=== PATIENT | female | born 2000 | race Caucasian/White ===

== ENCOUNTER 2022-05-22 22:03 | Outpatient (CLI) ==
[~2022-05-22] VITALS: Ht 162.6 cm; Wt 72.0 kg
[2022-05-22 22:27] VITALS: BP 122/79
[2022-05-22] MEDS ORDERED: IRON1TAB2 PO (22:35)
[2022-05-22] MEDS ORDERED: NOXI1TAB PO (22:35)
[2022-05-22] MEDS ORDERED: LR 1,000 ML IV ONE (23:00)
[2022-05-23 01:21] LABS: TRANSITIONAL EPI CELLS, URINE SMALL AMOUNT /hpf
[2022-05-23 01:22] LABS: AMORPHOUS SEDIMENT, URINE SMALL AMOUNT (NEGATIVE); HYALINE CAST, URINE NONE SEEN /lpf (0-1)
[2022-05-23 01:23] LABS: BACTERIA, URINE SMALL AMOUNT; MUCUS, URINE SMALL AMOUNT (NEGATIVE); SQUAMOUS EPITHELIAL CELL URINE MOD AMOUNT /hpf (SMALL AMT)
== END 2022-05-23 01:25 | disposition home or self-care (01) ==
LOC: M LDO 22:03
PROVIDERS: ATTEND Obstetrics & Gynecology
DX: O26.893 Other specified pregnancy related conditions, third trimester (principal); N89.8 Other specified noninflammatory disorders of vagina; Z3A.35 35 weeks gestation of pregnancy; O99.013 Anemia complicating pregnancy, third trimester
CPT/HCPCS: 59025; 76815; 81000; 81015; 87086; G0463

== ENCOUNTER 2022-06-15 13:35 | Outpatient (CLI) ==
[~2022-06-15] VITALS: Ht 162.6 cm; Wt 72.0 kg
[~2022-06-15 13:35] MED LIST: IRON1TAB2 PO; NOXI1TAB PO
[2022-06-15 13:57] VITALS: BP 120/79
[2022-06-15] MEDS ORDERED: MIRA3350 PO (14:05)
[2022-06-15] MEDS ORDERED: HOME MED LIST COMPLETE! XX SCH (14:10)
[2022-06-15 15:09] VITALS: BP 125/81
== END 2022-06-15 15:11 | disposition home or self-care (01) ==
LOC: M LDO 13:35
PROVIDERS: ATTEND Obstetrics & Gynecology
DX: O99.613 Diseases of the digestive system complicating pregnancy, third trimester (principal); K59.00 Constipation, unspecified; Z3A.38 38 weeks gestation of pregnancy; O26.893 Other specified pregnancy related conditions, third trimester; R39.198 Other difficulties with micturition; O99.283 Endocrine, nutritional and metabolic diseases complicating pregnancy, third trimester; E86.0 Dehydration
CPT/HCPCS: 59025; G0463

== ENCOUNTER 2022-06-21 20:28 | Outpatient (CLI) | payer SELFPAY ==
[~2022-06-21] VITALS: Ht 162.6 cm; Wt 72.8 kg
[~2022-06-21 20:28] MED LIST changes: +MIRA3350 PO
[2022-06-21 21:19] VITALS: BP 136/102
[2022-06-21 21:40] VITALS: BP 132/80
== END 2022-06-21 21:52 | disposition home or self-care (01) ==
LOC: M LDO 20:28
PROVIDERS: ATTEND Obstetrics & Gynecology
DX: O47.1 False labor at or after 37 completed weeks of gestation (principal); Z3A.39 39 weeks gestation of pregnancy; O99.013 Anemia complicating pregnancy, third trimester
CPT/HCPCS: 59025; G0463

== ENCOUNTER 2022-06-28 12:31 | Inpatient (IN) | payer OTHER ==
[~2022-06-28] VITALS: Ht 162.6 cm; Wt 73.4 kg
[2022-06-28] VITALS (28 sets, daily range): BP systolic 91–138; BP diastolic 52–89
[2022-06-28] MEDS ORDERED: HOME MED LIST COMPLETE! XX SCH (13:05)
[2022-06-28] MEDS ORDERED: LACTATED RINGER'S 1000 ML IV STA (14:14)
[2022-06-28] MEDS ORDERED: LR 1,000 ML IV SCH ×2 (14:15→16:20)
[2022-06-28] MEDS ORDERED: METHYLERGONOVINE MALEATE 0.2 MG/ML VIAL (J2210) IM PRN (14:15)
[2022-06-28] MEDS ORDERED: LIDOCAINE 1% MDV 20ML VIAL INFIL PRN (14:15)
[2022-06-28] MEDS ORDERED: OXYTOCIN INJ 10 UNITS/ML VIAL (J2590) IM PRN (14:15)
[2022-06-28] MEDS ORDERED: CARBOPROST TROMETHAMINE 250 MCG/ML AMP IM PRN (14:15)
[2022-06-28] MEDS ORDERED: TRANEXAMIC ACID INJection 1,000 MG in NS 100 ML IV PRN (14:15)
[2022-06-28] MEDS ORDERED: OXYTOCIN DRIP 30 UNITS in IV 1 EA IV PRN ×6 (14:15)
[2022-06-28] MEDS ORDERED: OXYTOCIN INJ 10 UNITS/ML VIAL (J2590) IV PRN (14:15)
[2022-06-28 15:14] LABS: HEMATOCRIT 32.5 % (36.0-47.0); MEAN CORPUSCULAR HEMOGLOBIN 29.6 pg (27.0-33.0); MEAN CORPUSCULAR HGB CONC 33.8 g/dl (32.0-36.5); MEAN CORPUSCULAR VOLUME 87.4 fl (80.0-96.0); PLATELET COUNT, AUTOMATED 243 10^3/uL (150-450); RED BLOOD COUNT 3.72 10^6/uL (4.00-5.40); WHITE BLOOD COUNT 10.8 10^3/uL (4.0-10.0)
[2022-06-28] MEDS ORDERED: OXYTOCIN DRIP 30 UNITS in IV 1 EA IV SCH (16:20)
[2022-06-28] MEDS ORDERED: FENTANYL/ROPIVACAINE/NACL BAG 100 ML EPIDURAL SCH (21:10)
[2022-06-28] MEDS ORDERED: LR 500 ML IV PRN (21:10)
[2022-06-28] MEDS ORDERED: ePHEDrine SULFATE 25 MG/5 ML(5MG/ML) SYRINGE IVP PRN (21:10)
[2022-06-28] MEDS ORDERED: ONDANSETRON 4MG 2ML VIAL IV PRN (21:10)
[2022-06-28] MEDS ORDERED: diphenhydrAMINE 50MG/ML VIAL (J1200) IV PRN (21:10)
[2022-06-28] MEDS ORDERED: EPIDURAL/PCA KEYS XX PRN (21:10)
[2022-06-28] MEDS ORDERED: NALOXONE INJ 0.4MG/1ML VIAL (J2310 PER 1MG) IV PRN (21:10)
[2022-06-28] MEDS ORDERED: FENTANYL 2MCG/ML ROPIVACAINE 0.2% IN 0.9% NACL 100ML IVBAG As Ordered ONE (21:12)
[2022-06-29 05:10] LABS: CORD GAS ABE V -9.8; CORD GAS HCO3 V 15.3 MEQ/L; CORD GAS O2 SAT V 86.5 %; CORD GAS PCO2 V 31.9 mmHg; CORD GAS PH V 7.298 UNITS; CORD GAS PO2 V 42.8 mmHg; CORD GAS SBC V 16.6 MEQ/L; CORD GAS TCO2 V 16.3 MEQ/L
[2022-06-29 05:11] LABS: CORD GAS ABE A -11.9; CORD GAS HCO3 A 16.1 MEQ/L; CORD GAS O2 SAT A 71.8 %; CORD GAS PCO2 A 43.9 mmHg; CORD GAS PH A 7.183 UNITS; CORD GAS PO2 A 36.5 mmHg; CORD GAS SBC A 14.9 MEQ/L; CORD GAS TCO2 A 17.5 MEQ/L
[2022-06-29] MEDS ORDERED: METHYLERGONOVINE MALEATE 0.2 MG TAB PO PRN (05:15)
[2022-06-29] MEDS ORDERED: MOM 30ML SUSPENSION UDC PO PRN (05:15)
[2022-06-29] MEDS ORDERED: DOCUSATE SODIUM 100MG CAPSULE PO PRN (05:15)
[2022-06-29] MEDS ORDERED: DIBUCAINE 1% OINTMENT 30GM TOP PRN (05:15)
[2022-06-29 07:26] VITALS: BP 134/71
[2022-06-29] MEDS: ACETAMINOPHEN 500 MG TAB PO PRN ×3 (07:52→20:59)
[2022-06-29 09:23] VITALS: BP 123/66
[2022-06-29] MEDS: IBUPROFEN 800 MG TAB PO PRN ×2 (10:33→18:36)
[2022-06-29 18:26] VITALS: BP 110/73
[2022-06-30] MEDS: IBUPROFEN 800 MG TAB PO PRN ×2 (05:19→15:03)
[2022-06-30 06:14] VITALS: BP 119/70
[2022-06-30 07:36] LABS: HEMATOCRIT 28.6 % (36.0-47.0); HEMOGLOBIN 9.7 g/dl (12.0-15.5); MEAN CORPUSCULAR HEMOGLOBIN 30.2 pg (27.0-33.0); MEAN CORPUSCULAR HGB CONC 33.9 g/dl (32.0-36.5); MEAN CORPUSCULAR VOLUME 89.1 fl (80.0-96.0); PLATELET COUNT, AUTOMATED 175 10^3/uL (150-450); RED BLOOD COUNT 3.21 10^6/uL (4.00-5.40); WHITE BLOOD COUNT 15.2 10^3/uL (4.0-10.0)
[2022-06-30 17:59] VITALS: BP 112/57
[2022-07-01] MEDS: ACETAMINOPHEN 500 MG TAB PO PRN (01:21)
[2022-07-01 06:09] VITALS: BP 114/77
[2022-07-01] MEDS ORDERED: COLA100C5 PO (06:28)
[2022-07-01] MEDS ORDERED: ACET-683 PO (06:28)
[2022-07-01] MEDS ORDERED: IBUP80TA PO (06:28)
[2022-07-01] MEDS ORDERED: MEASLES,MUMPS,RUBELLA VACCINE INJ (MMR-II) (90707) SC.IMMUN ONE (09:00)
== END 2022-07-01 08:50 | disposition home or self-care (01) | DRG 807 ==
LOC: M LDO 12:31 → M LDI 13:42 → M OBS 06-29 09:11
PROVIDERS: ADMIT Obstetrics & Gynecology; ATTEND Obstetrics & Gynecology
PROC: 3E033VJ Introduction of Other Hormone into Peripheral Vein, Percutaneous Approach (ICD-10-PCS; 2022-06-28)
PROC: 10E0XZZ Delivery of Products of Conception, External Approach (ICD-10-PCS; principal; 2022-06-29)
DX: O42.02 Full-term premature rupture of membranes, onset of labor within 24 hours of rupture (principal); Z37.0 Single live birth; O48.0 Post-term pregnancy; Z3A.40 40 weeks gestation of pregnancy; O69.81X0 Labor and delivery complicated by cord around neck, without compression, not applicable or unspecified; O70.0 First degree perineal laceration during delivery